=== PATIENT | female | born 1970 | race Caucasian/White ===

== ENCOUNTER 2019-11-09 15:04 | Emergency (ER) | payer MEDICAID ==
[~2019-11-09] VITALS: Ht 157.5 cm; Wt 72.0 kg
[2019-11-09 15:09] VITALS: BP 157/98
== END 2019-11-09 17:13 | disposition home or self-care (01) ==
LOC: EEVIPCON 15:05 → ER 15:05
DX: S23.3XXA Sprain of ligaments of thoracic spine, initial encounter (principal); M25.512 Pain in left shoulder; X58.XXXA Exposure to other specified factors, initial encounter; Y93.89 Activity, other specified; Y92.89 Other specified places as the place of occurrence of the external cause; Y99.8 Other external cause status
CPT/HCPCS: 72070; 99283

== ENCOUNTER 2020-08-28 21:49 | Emergency (ER) | payer MEDICAID ==
[~2020-08-28] VITALS: Ht 157.5 cm; Wt 75.0 kg
[2020-08-28] MEDS ORDERED: LORazepam 2 mg/ml vial IV ONE (22:40)
[2020-08-28] MEDS ORDERED: aspirin 325mg tablet PO ONE (22:40)
[2020-08-28] MEDS ORDERED: normal saline 1000ml 1,000 ML IV ONE (22:40)
[2020-08-28 22:50] LABS: BASOPHILS # (AUTO) 0.1 X10'3 (0-0.2); BASOPHILS % (AUTO) 1.3 % (0-1); EOSINOPHILS # (AUTO) 0.1 X10'3 (0-0.9); EOSINOPHILS % (AUTO) 1.1 % (0-6); HEMATOCRIT 39.8 % (35.0-45.0); HEMOGLOBIN 13.4 g/dl (12.0-16.0); LYMPHOCYTES # (AUTO) 2.6 X10'3 (1.1-4.8); LYMPHOCYTES % (AUTO) 25.6 % (21-51); MEAN CORPUSCULAR HEMOGLOBIN 31.5 PG (27.0-31.0); MEAN CORPUSCULAR HGB CONC 33.6 g/dL (33.0-36.5); MEAN CORPUSCULAR VOLUME 93.8 FL (78-98); MEAN PLATELET VOLUME 7.7 FL (7.4-10.4); MONOCYTES # (AUTO) 0.8 X10'3 (0-0.9); MONOCYTES % (AUTO) 8.2 % (2-12); NEUTROPHILS # (AUTO) 6.4 X10'3 (1.8-7.7); NEUTROPHILS % (AUTO) 63.8 % (42-75); PLATELET COUNT 281 X10'3 (140-440); RED BLOOD COUNT 4.25 X10'6 (4.20-5.60); RED CELL DISTRIBUTION WIDTH 13.3 % (11.5-14.5)
[2020-08-28 22:58] LABS: D-DIMER 0.32 MG/L FEU (0-0.50)
[2020-08-28 23:01] LABS: ALANINE AMINOTRANSFERASE 29 U/L (12-78); ALBUMIN 3.7 G/DL (3.4-5.0); ALKALINE PHOSPHATASE 115 IU/L (46-116); ANION GAP 8 (8-16); ASPARTATE AMINO TRANSFERASE 19 U/L (10-37); BILIRUBIN,TOTAL 0.2 MG/DL (0.1-1.0); BLOOD UREA NITROGEN 24 MG/DL (7-18); BUN/CREATININE RATIO 19.7 (6.6-38.0); CALCIUM 8.4 MG/DL (8.5-10.1); CHLORIDE 105 MMOL/L (99-107); CREATININE 1.22 MG/DL (0.40-0.90); GLUCOSE 109 MG/DL (70-104); POTASSIUM 3.9 MMOL/L (3.5-5.1); SODIUM 141 MMOL/L (135-145); TOTAL PROTEIN 7.5 G/DL (6.4-8.2); eGFR 46 ML/MIN
--- NOTE | 2020-08-28 23:15 | NUR ---
Pt remains very anxious and is talkin non stop. Pt given ativan 1 mg iv. Pt drove self here from [place]. Charge Nurse aware and decision made to keep Pt here until am so that she will be safe to drive home. Pt is agreeable to this plan.
--- NOTE | 2020-08-28 23:54 | NUR ---
Pt is dc ready, she is unable to arrange transport back to [place] and will stay in ER until 5-6 am, then will be able to drive herself home. Dr. Burdick and [facility] certified concierge agreeable to this plan.
--- NOTE | 2020-08-29 01:03 | NUR ---
Pt appears to be sleeping, lying on her left side with blankets covering to her shouders.
--- NOTE | 2020-08-29 02:39 | NUR ---
JUST CHECKED ON PATIENT, PATIENT IN BED LYING ON RIGHT SIDE EYES CLOSED COVERS ON RR EVEMN UN LABORED EASY TO AROUSE [id number], NO OBSERVABLE S/S OF ACUTE STRESS / PAIN AT THIS TIME WILL CONTINUE TO MONITOR
--- NOTE | 2020-08-29 04:11 | NUR ---
Pt awake and walked to br to void. Ambulating with steady gait. Reports she remains sleepy. states she is grateful for us allowing her to sleep and that her cp is gone. Pt updated that after 5 am , if MD is ok with DC, she will be able to leave and drive home to [place]. We planned to get her up and have a snack and give her a cup of coffee at 5 and evaluate. Pt is agreeable to this plan.
--- NOTE | 2020-08-29 04:38 | NUR ---
patient in bed eyes closed rr even un labored no observable s/s of acute stress/pain at this time will continue to monitor
--- NOTE | 2020-08-29 05:37 | NUR ---
Pt awakened and vs taken and stable. she denies any further symptoms (no nausea no cp). Drank cup of coffee and juice, ate sandwich and jello. up with steady gait. Pt is cleared to DC now.
[2020-08-29 05:40] VITALS: BP 155/104
== END 2020-08-29 05:40 | disposition home or self-care (01) ==
LOC: ER 21:50
DX: R07.89 Other chest pain (principal); F41.9 Anxiety disorder, unspecified
CPT/HCPCS: 36415; 71045; 80053; 83880; 84484; 85025; 85379; 93005; 96361; 96374; 99285; J2060; J7030

== ENCOUNTER 2021-04-22 23:58 | Emergency (ER) | payer MEDICAID ==
[~2021-04-22] VITALS: Ht 157.5 cm; Wt 73.6 kg
[2021-04-23 00:08] VITALS: BP 152/98
--- NOTE | 2021-04-23 02:15 | NUR ---
COVID IS NEG
[2021-04-23] MEDS ORDERED: DEXAMETHASONE 6 MG TABLET PO SCH (02:26)
== END 2021-04-23 02:47 | disposition home or self-care (01) ==
LOC: ER 23:58
DX: J11.1 Influenza due to unidentified influenza virus with other respiratory manifestations (principal); Z20.822 Contact with and (suspected) exposure to COVID-19; F17.200 Nicotine dependence, unspecified, uncomplicated; Z60.2 Problems related to living alone
CPT/HCPCS: 36415; 87635; 99283; C9803; J8540

== ENCOUNTER 2021-09-16 02:36 | Emergency (ER) | payer MEDICAID ==
[~2021-09-16] VITALS: Ht 157.5 cm; Wt 77.3 kg
[2021-09-16] MEDS ORDERED: normal saline 1000ML IV soln IVB ONE ×2 (03:15)
[2021-09-16] MEDS ORDERED: ondansetron/PF 4mg/2ml inj IV ONE (03:15)
[2021-09-16] MEDS ORDERED: pantoprazole 40MG/D5 100ML BAG 100 ML IV ONE (03:15)
[2021-09-16 03:40] LABS: BASOPHILS # (AUTO) 0.1 X10'3 (0-0.2); EOSINOPHILS # (AUTO) 0.1 X10'3 (0-0.9); EOSINOPHILS % (AUTO) 1.7 % (0-6); HEMATOCRIT 37.3 % (35.0-45.0); HEMOGLOBIN 12.9 g/dl (12.0-16.0); LYMPHOCYTES # (AUTO) 2.5 X10'3 (1.1-4.8); LYMPHOCYTES % (AUTO) 28.2 % (21-51); MEAN CORPUSCULAR HEMOGLOBIN 32.2 PG (27.0-31.0); MEAN CORPUSCULAR HGB CONC 34.5 g/dL (33.0-36.5); MEAN CORPUSCULAR VOLUME 93.3 FL (78-98); MONOCYTES # (AUTO) 0.7 X10'3 (0-0.9); MONOCYTES % (AUTO) 7.6 % (2-12); NEUTROPHILS # (AUTO) 5.4 X10'3 (1.8-7.7); NEUTROPHILS % (AUTO) 61.5 % (42-75); PLATELET COUNT 326 X10'3 (140-440); RED CELL DISTRIBUTION WIDTH 13.9 % (11.5-14.5); WHITE BLOOD COUNT 8.8 X10'3 (4.5-11.0)
[2021-09-16 03:52] LABS: ALANINE AMINOTRANSFERASE 24 U/L (12-78); ALBUMIN 3.6 G/DL (3.4-5.0); ALKALINE PHOSPHATASE 98 IU/L (46-116); ANION GAP 12 (8-16); ASPARTATE AMINO TRANSFERASE 16 U/L (10-37); BILIRUBIN,TOTAL 0.2 MG/DL (0.1-1.0); BLOOD UREA NITROGEN 19 MG/DL (7-18); BUN/CREATININE RATIO 21.1 (6.6-38.0); CALCIUM 8.2 MG/DL (8.5-10.1); CHLORIDE 107 MMOL/L (99-107); GLUCOSE 128 MG/DL (70-104); LIPASE 99 U/L (73-393); POTASSIUM 3.8 MMOL/L (3.5-5.1); SODIUM 143 MMOL/L (135-145); TOTAL CARBON DIOXIDE 24.3 MMOL/L (24-32); TOTAL PROTEIN 7.1 G/DL (6.4-8.2); eGFR 66 ML/MIN
[2021-09-16 03:53] LABS: HCG SERUM QL NEGATIVE
[2021-09-16 05:09] LABS: COLOR,URINE YELLOW (Yellow); GLUCOSE, URINE NEGATIVE (Neg); KETONES,URINE NEGATIVE (Neg); LEUKOCYTE ESTERASE ,URINE NEGATIVE (Neg); NITRITES, URINE NEGATIVE (Neg); OCCULT BLOOD,URINE NEGATIVE (Neg); PROTEIN,URINE NEGATIVE (Neg); UROBILINOGEN,URINE 0.2 E.U/dL (0.2-1.0)
[2021-09-16 05:16] LABS: CLARITY,URINE CLEAR (Clear); UA COLLECTION TYPE CLN CATCH MIDSTREAM
[2021-09-16] MEDS ORDERED: LIDOcaine Viscous 15ml cup MM ONE (05:25)
[2021-09-16] MEDS ORDERED: mag hydrox/Alum hydrox/simeth 30ml oral suspension PO ONE (05:25)
[2021-09-16] MEDS ORDERED: PANT-47 PO ×2 (05:27→05:28)
[2021-09-16] MEDS ORDERED: ONDA8TAB13 PO ×2 (05:27→05:28)
[2021-09-16 05:46] VITALS: BP 140/85
== END 2021-09-16 05:47 | disposition home or self-care (01) ==
LOC: ER 02:36
DX: R10.13 Epigastric pain (principal); R11.10 Vomiting, unspecified; F17.200 Nicotine dependence, unspecified, uncomplicated; Z60.2 Problems related to living alone; Z79.899 Other long term (current) drug therapy
CPT/HCPCS: 36415; 80053; 81003; 83690; 84703; 85025; 93005; 96361; 96374; 96375; 99284; C9113; J2405; J7030

== ENCOUNTER 2022-04-29 13:36 | Emergency (ER) | payer MEDICAID ==
[~2022-04-29] VITALS: Ht 157.5 cm; Wt 73.6 kg
[~2022-04-29 13:36] MED LIST: ONDA8TAB13 PO; PANT-47 PO
[2022-04-29 13:47] VITALS: BP 144/91
[2022-04-29] MEDS ORDERED: ketorolac trometh inj. 60 MG/2 ML VIAL IM ONE (15:35)
[2022-04-29] MEDS ORDERED: ondansetron 4mg rapidly disintigrating tab PO ONE (15:35)
[2022-04-29] MEDS ORDERED: ONDA4TAB12 PO (15:42)
== END 2022-04-29 16:01 | disposition home or self-care (01) ==
LOC: ER 13:37
DX: R68.84 Jaw pain (principal); H92.01 Otalgia, right ear; R51.9 Headache, unspecified; R11.0 Nausea; Z79.899 Other long term (current) drug therapy
CPT/HCPCS: 96372; 99283; J1885

== ENCOUNTER 2022-09-13 20:04 | Emergency (ER) | payer MEDICAID ==
[~2022-09-13] VITALS: Ht 157.5 cm; Wt 160.0 kg
[~2022-09-13 20:04] MED LIST changes: +ONDA4TAB12 PO
== END 2022-09-13 22:05 | disposition home or self-care (01) ==
LOC: ER 20:05
DX: B34.9 Viral infection, unspecified (principal); Z20.822 Contact with and (suspected) exposure to COVID-19
CPT/HCPCS: 87502; 87503; 87635; 99283; C9803